=== PATIENT | female | born 1960 | race Caucasian/White ===

== ENCOUNTER 2020-01-22 10:56 | Emergency (ER) | payer OTHER, SELFPAY ==
[2020-01-22 11:07] VITALS: BP 133/73; PULSE 89; RESP 20; TEMP 39.1; O2SAT 97
--- NOTE | 2020-01-22 11:37 | ED.FEVER ---
HPI - Fever General Chief Complaint: Fever Stated Complaint: fever/sore in mouth Time Seen by Provider: 01/22/20 11:24 Source: patient and RN notes reviewed Mode of arrival: ambulatory Limitations: no limitations History of Present Illness HPI Narrative: Patient presents today complaining of fever up to 101, chills, body aches since yesterday. She has also had a sore on the roof of her mouth x6 days that seems to be improving. Denies cough, congestion, rhinorrhea, sore throat, shortness of breath. Denies loss of taste or smell. No known COVID-19 exposure. She has been taking Tylenol and using salt water rinses in her mouth with some relief. MD elicited complaint: fever Related Data Home Medications Medication Instructions Recorded Confirmed levothyroxine 150 mcg PO DAILY 01/22/20 01/22/20 Allergies Allergy/AdvReac Type Severity Reaction Status Date / Time codeine Allergy Unknown Nausea Verified 01/22/20 11:10 Review of Systems Review of Systems: Narrative: CONSTITUTIONAL: Denies sweats.+ Fever, chills, body aches EYES: Denies visual changes, redness, or discharge. ENT: Denies rhinorrhea, congestion, sore throat, or otalgia. CARDIOVASCULAR: Denies chest pain, palpitations, or edema. RESPIRATORY: Denies cough or dyspnea. GASTROINTESTINAL: Denies abdominal pain, nausea, vomiting, or diarrhea. GENITOURINARY: Denies dysuria or hematuria. SKIN: Denies rash, itching, or wounds. MUSCULOSKELETAL: Denies back pain, joint pain, or myalgia. NEUROLOGIC: Denies headache, numbness, tingling, or weakness. PSYCH: Denies depression or anxiety. [facility] Family History Family History (Updated 08/15/17 @ 08:50 by DOCTOR UNKNOWN) Mother Family history of malignant neoplasm of stomach Grandparent Family history of lung cancer Family history of coronary artery disease Diabetes mellitus Other Family history of arthritis Family history of cardiovascular disease Family history of congestive heart failure Family history of lung disease Social History Social History Smoking status: Never smoker Alcohol intake: current Comments At time of signature, I have reviewed and agree with nursing past medical, surgical, social and family history unless otherwise noted. Please see nursing chart for further information. There is no relevant family history pertinent to the presenting complaint Exam Narrative: Exam Narrative: GENERAL: Well-appearing, well-nourished, and in no acute distress. HEAD: Normocephalic, atraumatic. EYES: EOMI. No redness or drainage. Conjunctivae normal. ENT: Mucous membranes pink and moist. 3 mm ulceration to the left hard palate that seems to be healing. No active erythema or edema noted. No drainage. Nares clear. No rhinorrhea. TMs normal bilaterally. Throat normal. Uvula midline. NECK: Normal AROM. Supple. No lymphadenopathy. CHEST: No respiratory distress. Clear to auscultation. HEART: Regular rate and rhythm. No murmur appreciated. Normal peripheral pulses. EXTREMITIES: Normal range of motion. No edema. SKIN: Warm, dry, no rash. Capillary refill normal. Normal skin turgor. NEURO: No focal deficits. Alert and oriented x3. Gait steady. PSYCH: Normal affect. No signs of depression or anxiety. Course Vital Signs Vital signs: Vital Signs Temperature 102.3 F H 01/22/20 11:07 Pulse Rate 89 01/22/20 11:07 Respiratory Rate 01/22/20 11:07 Blood Pressure 133/73 01/22/20 11:07 Pulse Oximetry 97 01/22/20 11:07 Temperature 102.3 F H 01/22/20 11:07 Pulse Rate 89 01/22/20 11:07 Respiratory Rate 20 01/22/20 11:07 Blood Pressure 133/73 01/22/20 11:07 Pulse Oximetry 97 01/22/20 11:07 Reviewed. Pt has been instructed to follow up with her PCP regarding her elevated blood pressure today. MDM - Fever MDM Narrative Medical decision making narrative: Order sent for COVID-19 testing tomorrow at 0820 at [place]. due to recent exposure and symptoms, laya
== END 2020-01-22 12:01 | disposition home or self-care (01) ==
PROVIDERS: Emergency Provider Nurse Practitioner; PCP Family Medicine
DX: U07.1 COVID-19 (principal); E89.0 Postprocedural hypothyroidism
CPT/HCPCS: 99211; G0463

== ENCOUNTER → 2020-03-03 10:26 | Outpatient (CLI) | payer OTHER, SELFPAY ==
--- NOTE | ~2020-03-03 | XR_ITS ---
XR hip LT min 2V 03/03/2020 10:47 INDICATION: Left hip pain PROCEDURE: 2 views left hip COMPARISON: No prior studies for comparison. FINDINGS: Fracture, dislocation or subluxation is not identified. The soft tissues appear within norm al limits. No foreign bodies are identified. IMPRESSION: 1: NO ACUTE BONE OR JOINT ABNORMALITY IDENTIFIED. Reviewed, dictated and finalized at location A.
== END ==
PROVIDERS: PCP Family Medicine; Visit Provider Family Medicine
DX: M25.552 Pain in left hip (principal)
CPT/HCPCS: 73502

== ENCOUNTER → 2020-05-29 15:36 | Outpatient (CLI) | payer OTHER, SELFPAY ==
--- NOTE | ~2020-05-29 | MM_ITS ---
EXAMINATION: MM screening [facility] BI w john HISTORY: Screening mammogram TECHNIQUE: Craniocaudal and mediolateral oblique 3-D tomosynthesis images were obtained and synthetic 2-D images were generated. CAD analysis was submitted and interpreted. COMPARISON: 10/08/2018, 09/15/2017 BREAST PARENCHYMAL COMPOSITION: The breasts are almost entirely fatty. FINDINGS: Stable intramammary lymph nodes are noted in the left breast. There is no evidence of suspi cious mass, calcification, or architectural distortion to suggest malignancy in either breast. There has been no suspicious interval change. IMPRESSION: 1. No mammographic evidence of malignancy. 2. Recommend routine screening mammography in one year. BI-RADS Category 2: Benign finding(s). Reviewed, dictated and finalized at location A. P HERDER
== END ==
PROVIDERS: PCP Family Medicine; Visit Provider Obstetrics & Gynecology
DX: Z12.31 Encounter for screening mammogram for malignant neoplasm of breast (principal)
CPT/HCPCS: 77063; 77067

== ENCOUNTER → 2020-09-24 12:44 | Outpatient (CLI) | payer OTHER, SELFPAY ==
--- NOTE | ~2020-09-24 | CT_ITS ---
EXAMINATION: CT abdomen pelvis wo con DATE: 09/24/2020 13:07 INDICATION: Ventral hernia without obstruction or gangrene TECHNIQUE: Computed tomography (CT) of the abdomen and pelvis was performed without intravenous contr ast. The dose-length product (DLP) was 931.15 mGy-cm. Automated exposure control and iterative recons truction technique were employed. COMPARISON: 10/10/2016 FINDINGS: Minimal dependent atelectasis is present in the lung bases. The heart size is normal. Stabl e nodules of the visualized lower lobes measure up to 5 mm and are consistent with old granulomatous disease. Although limited by the absence of intravenous contrast, there are hemangiomas are again not ed which measure up to 2.7 cm in liver segment . The spleen, pancreas, and adrenal glands are idania l. Stones are present in the nondistended gallbladder. There is a 2 mm nonobstructing stone of the ri ght kidney lower pole. The left kidney is unremarkable. There is calcified atherosclerosis of the aor ta and many of the other arteries. No pathologically enlarged abdominal or pelvic lymph nodes are kary ntified. Colonic diverticulosis is present without evidence of diverticulitis. There is an umbilical hernia containing fat. There is mild lumbar spondylosis. IMPRESSION: 1. Fat-containing umbilical hernia. 2. Cholelithiasis without evidence of cholecystitis. Reviewed, dictated and finalized at location B.
== END ==
PROVIDERS: PCP Family Medicine; Visit Provider Surgery
DX: K43.9 Ventral hernia without obstruction or gangrene (principal); K40.90 Unilateral inguinal hernia, without obstruction or gangrene, not specified as recurrent; K80.20 Calculus of gallbladder without cholecystitis without obstruction
CPT/HCPCS: 74176

== ENCOUNTER → 2020-11-21 00:09 | Outpatient (CLI) | payer OTHER, SELFPAY ==
[2020-11-21 17:56] LABS: SARS-CoV-2 RNA PCR Negative
== END ==
PROVIDERS: PCP Family Medicine; Visit Provider Surgery
DX: Z01.812 Encounter for preprocedural laboratory examination (principal); Z20.822 Contact with and (suspected) exposure to COVID-19
CPT/HCPCS: C9803; U0003; U0005

== ENCOUNTER 2020-11-25 00:44 | Day surgery (SDC) | payer OTHER, SELFPAY ==
[2020-11-12 15:27] VITALS: BMI 29.2
--- NOTE | 2020-11-24 07:56 | PM.SD2 ---
Same Day Admit/Disch: HPI History of Present Illness Chief complaint: ventral hernia Narrative: Aleja Azul is a 60 year old female Who presented to the office with a bulge above the umbilicus which is tender. It rubs on her waistline of her clothes. It is also occasionally painful. On exam she was noted to have a bulge about 5 cm cephalad to the umbilicus. She had a CT scan of the abdomen and pelvis which showed an umbilical hernia. She has a history of an abdominal plasty done 11 years ago in [place]. She is taken to surgery now for umbilical hernia repair with mesh. She has a medical history of hypothyroidism, obstructive sleep apnea, and Crohn's disease. She is on no medication for Crohn's disease. [facility] Past Medical History Medical History Crohn's disease Hypothyroidism Surgical History Surgical History H/O abdominoplasty History of delivery History of hysterectomy History of meniscectomy of left knee History of thyroidectomy noncancerous Family History Family History Mother Family history of malignant neoplasm of stomach Grandparent Family history of lung cancer Family history of coronary artery disease Diabetes mellitus Other Family history of arthritis Family history of cardiovascular disease Family history of congestive heart failure Family history of lung disease Social History Social History Smoking packs per day: 0.5 Smoking cigarettes per day: 10.0 Years smoked: 5 Smoking pack-years: 2.50 Smoking status: Former smoker Tobacco type: cigarettes Smoking end date: 06/12/92 Alcohol intake: current Substance use: never Substance use type: does not use Last use: 1992 Living arrangements: with family Gender identity (if verbalized by the patient): Female Sexual Orientation (if Verbalized by the Patient): Straight or Heterosexual Spiritual care concerns: No Same Day Admit/Disch: Med Pre-admit Medications Home Medications Medication Instructions Recorded Confirmed Type levothyroxine 150 mcg tablet 150 mcg PO DAILY #90 tablet 08/24/20 11/25/20 Rx ketorolac 10 mg PO Q6H 4 Days #16 tablet 11/25/20 Rx oxycodone-acetaminophen 0.5 - 1 tablet PO Q6H PRN #7 tablet 11/25/20 Rx Exam Const: General: comfortable, no acute distress, alert and awake HENMT: Head: normocephalic and atraumatic Mouth: Yes Normal oral and palatal mucosa present Eyes: Conjunctivae: conjunctivae normal Pupils: Equal, round and reactive pupils present EOM: EOMs intact bilaterally Neck: Neck: normal visual inspection, no lymphadenopathy and nontender Resp: Effort & Inspection: normal respiratory effort Auscultation: clear to auscultation bilaterally Cardio: Rate: regular rate Rhythm: regular rhythm Heart sounds: no gallops, no murmurs and no rubs GI: Inspection: non-distended, scar ( Abdominal plasty) and visible herniation ( bulge, 5 cm above umbilicus) GI Palp: Yes Soft to palpation, No Tenderness to palpation present (GI), No Hepatomegaly present, No Splenomegaly present and Yes Hernia present ( small umbilical hernia minimal tenderness) Skin: Lesions: no lesions Rashes: no rashes Neuro: General: no focal motor deficits and CN's II-XI intact bilaterally Cranial nerves: Yes Equal, round and reactive pupils present, Yes Bilaterally intact EOM present, Yes facial symmetry and Yes Midline tongue present Speech: normal speech Motor exam (neuro): 5/5 motor strength present throughout and Motor abnormalities not present Extrem: General: no clubbing, cyanosis or edema and edema Psych: Affect: normal affect Thought process: Normal thought process present Insight: Good insight present (Psych) DS: Summary Time Spent with Patient Time attestation: Total pardeep
--- NOTE | 2020-11-24 13:17 | WPDANESEPPF ---
Anes - Initial Pre Proc Eval Procedure: Operation Date: 11/25/20 07:30 Proposed Procedures p Open Periumbilical Ventral Hernia Repair With Mesh - Henry Martell MD Date/Time: 11/24/20 13:17 Surgeon: Henry Martell MD Pre Op Diagnosis: ventral hernia Patient Data Age: 60 Gender: F Height: 1.73 m Weight: 87.3 kg Allergies Allergy/AdvReac Type Severity Reaction Status Date / Time codeine AdvReac Mild Nausea Verified 11/25/20 06:19 Home Medications Medication Instructions Recorded Confirmed Type levothyroxine 150 mcg tablet 150 mcg PO DAILY #90 tablet 08/24/20 11/25/20 Rx Patient hx anesthesia problems: none Family hx anesthesia problems: none PMFSH Past Medical History Medical History Crohn's disease Hypothyroidism Surgical History Surgical History H/O abdominoplasty History of delivery History of hysterectomy History of meniscectomy of left knee History of thyroidectomy noncancerous Family History Family History Mother Family history of malignant neoplasm of stomach Grandparent Family history of lung cancer Family history of coronary artery disease Diabetes mellitus Other Family history of arthritis Family history of cardiovascular disease Family history of congestive heart failure Family history of lung disease Social History Social History Smoking packs per day: 0.5 Smoking cigarettes per day: 10.0 Years smoked: 5 Smoking pack-years: 2.50 Smoking status: Former smoker Tobacco type: cigarettes Smoking end date: 06/12/92 Alcohol intake: current Substance use: never Substance use type: does not use Last use: 1992 Living arrangements: with family Gender identity (if verbalized by the patient): Female Sexual Orientation (if Verbalized by the Patient): Straight or Heterosexual Spiritual care concerns: No Anes - Eval Final PreProcedure Day of Procedure 11/24/20 13:17 Patient weight: overweight Heart: regular rate and rhythm Lungs: clear to auscultation and normal air movement Airway: Mallampati scale class II Neurological: alert and oriented Last oral intake: >/= 8 hours ASA classification: II Emergent: no Anesthetic plan: proceed Anesthesia type and monitoring: general GIVS and LMA Informed Consent: The patient's anesthetic plan and its attendant risks and benefits were discussed with the patient/family/POA. Questions were solicited and answers provided to the satisfaction of the patient/family/POA.
[2020-11-25 06:12] VITALS: BP 119/78; PULSE 71; RESP 16; TEMP 36.2; O2SAT 97
[2020-11-25] MEDS: ACETAMINOPHEN 500 MG TABLET 1000 MG PO (06:23)
[2020-11-25] MEDS: LACTATED RINGERS 1,000 ML 30 ML IV CONT ×2 (06:38→08:27)
[2020-11-25] MEDS: KETOROLAC 15 MG/ML VIAL (*BKC) IV PUSH (06:39)
--- NOTE | 2020-11-25 06:51 | WPDHPUPDATE1 ---
History and Physical Update Update Date/Time: 11/25/20 06:51 History and Physical has been reviewed, including an updated exam of the patient. There are NO changes in the patient's condition. Risks, benefits, and alternatives have been discussed and questions answered. Patient agrees to proceed with procedure.
[2020-11-25] MEDS: ceFAZolin 2 GM/D5W 50 ML 2 GM/50 ML BAG IVPB (07:20)
[2020-11-25] MEDS: BUPIVACAINE HCL 0.5% PF 30 ML VIAL INFILTRATE (07:55)
[2020-11-25 08:27] VITALS: BP 101/61; PULSE 63; RESP 16; O2SAT 95
--- NOTE | 2020-11-25 08:42 | P.OP_ITS ---
Procedure Note - Detailed Date of Procedure 11/25/20 Pre-op Diagnosis ventral hernia Post-op Diagnosis other (Umbilical hernia) Procedure Performed Umbilical hernia repair Surgeon Henry Martell MD [employer]ING MANAGER Anesthesia MAC (G IV S) and local (0.5% Marcaine with Exparel) Indications Patient had abdominal plasty 11 years ago. She has a bulge in the abdomen about 5 cm cephalad to the umbilicus. It has been symptomatic. CT suggests this is an umbilical hernia. She is taken to surgery now for ventral hernia repair. Findings Showed an umbilical hernia. There was no separate ventral hernia defect. It was very small hernia and no mesh was required. Description of Procedure Patient was checked in the preoperative holding area. She was taken to surgery and anesthesia was introduced. The proposed incision was marked on the skin. This was a midline incision just above the umbilicus. Local was infiltrated into the skin and the deeper subcutaneous tissue. Incision was made dissect down through the subcutaneous. The incision was made over the palpable bulge. As we dissected through the subcutaneous it was evident that a lot of the bulging tissue was some indurated subcutaneous fat. I dissected down to the fascia and down to the umbilical stalk. The hernia was found associated with the umbilicus. I expose the midline fascia above the umbilicus for at least 7 cm. No additional hernia defects were found. I then divided the hernia sac at its neck. The herniated contents were excised and discarded. Hernia sac was dissected off the umbilical skin. The hernia defect was quite small being only about 8 mm in width and 3 mm in length. I closed it with a [id number] mattress suture of 0 Ethibond. I then tacked the umbilical skin to the fascia with 3 0 Vicryl suture. The subcutaneous was closed with interrupted 3 0 Vicryl suture. Subcuticular interrupted 4 O Vicryl skin stitches were placed. The skin was finally closed with a running 4 0 Monocryl skin suture. The wound was dressed with Exofin surgical adhesive. The patient was awakened and taken to recovery in good condition. Sponge and needle counts were correct x2. Estimated Blood Loss 5 Drains No Packing No Pathology none sent Complications None Condition stable Disposition same day
[2020-11-25 08:57] VITALS: BP 105/64; PULSE 62; RESP 16; O2SAT 98
[2020-11-25 09:20] VITALS: BP 106/61; PULSE 60; RESP 16
== END 2020-11-25 09:30 | disposition home or self-care (01) ==
PROVIDERS: PCP Family Medicine; Visit Provider Surgery
PROC: 0WQF0ZZ Repair Abdominal Wall, Open Approach (ICD-10-PCS; CPT 49585; principal; 2020-11-25 07:30)
DX: K42.9 Umbilical hernia without obstruction or gangrene (principal); E03.9 Hypothyroidism, unspecified; K50.90 Crohn's disease, unspecified, without complications; Z87.891 Personal history of nicotine dependence
CPT/HCPCS: 49585; A9270; C9290; C9803; J0690; J1100; J1885; J2250; J2405; J2704; J3010; J7120; U0003; U0005

== ENCOUNTER → 2021-03-08 09:40 | Outpatient (CLI) | payer OTHER, SELFPAY ==
--- NOTE | ~2021-03-08 | XR_ITS ---
EXAMINATION: XR abdomen/kub 1V EXAM DATE: 03/08/2021 10:00 INDICATION: R10.9 - Unspecified abdominal pain . TECHNIQUE: Frontal projection of the upper abdomen, frontal projection lower abdomen/pelvis for inter pretation. Correlation is made to CT abdomen from September. FINDINGS: There is expected amount of colonic stool and gas. No small bowel dilation, nonobstructiv e bowel gas pattern. There are no suspicious calcifications identified. There is no organomegaly suspected. Moderate lower lumbar spondylosis. Lung bases are unremarkable. IMPRESSION: Unremarkable abdomen x-ray exam. Reviewed, dictated and finalized at location A.
== END ==
PROVIDERS: PCP Family Medicine; Visit Provider Family Medicine
DX: R10.9 Unspecified abdominal pain (principal)
CPT/HCPCS: 74018

== ENCOUNTER 2021-03-15 15:22 | Outpatient (CLI) | payer OTHER, SELFPAY ==
--- NOTE | ~2021-03-15 | CT_ITS ---
EXAMINATION: CT abdomen pelvis wo con DATE: 03/15/2021 15:51 INDICATION: Right flank pain. Unspecified abdominal pain. TECHNIQUE: Computed tomography (CT) of the abdomen and pelvis was performed without intravenous contr ast. Automated exposure control and iterative reconstruction technique were employed. The dose-length product was 751.67 mGy-cm. COMPARISON: CT abdomen and pelvis 09/24/2020, 10/10/2016 FINDINGS: The visualized portions of the lung bases demonstrate mild atelectasis. Again seen is a 5 m m nodule in right lower lobe, likely benign. Again seen is a 6 mm nodule in left lower lobe, likely b enign. No pleural effusion. The heart size is normal. No pericardial effusion. Again seen is a 2.5 cm mass in right hepatic lobe, likely a hemangioma. There are gallstones in the gallbladder, which is c ontracted. The spleen, pancreas, adrenal glands, and left kidney are normal. There is a 2 mm stone in right kidney. There is diverticulosis of the colon without evidence of diverticulitis. There are no dilated loops of bowel. The appendix is normal. There are no pathologically enlarged lymph nodes. The re is no free intraperitoneal fluid. There is moderate lumbar spondylosis. IMPRESSION: 1. Small nonobstructing right kidney stone. 2. Cholelithiasis. No evidence of acute cholecystitis. Reviewed, dictated and finalized at location A.
== END 2021-03-15 15:23 | disposition home or self-care (01) ==
LOC: ANHIMG 15:31
PROVIDERS: PCP Family Medicine; Visit Provider Family Medicine
DX: R10.9 Unspecified abdominal pain (principal); R31.9 Hematuria, unspecified; N20.0 Calculus of kidney; K80.20 Calculus of gallbladder without cholecystitis without obstruction
CPT/HCPCS: 74176

== ENCOUNTER 2021-03-23 13:43 | Outpatient (CLI) | payer OTHER, SELFPAY ==
--- NOTE | ~2021-03-23 | CT_ITS ---
EXAMINATION:CT lung screening DATE: 03/23/2021 14:34 INDICATION: Lung nodule. TECHNIQUE: Computed tomography (CT) of the chest was performed without intravenous contrast. Automate d exposure control and iterative reconstruction technique were employed. The dose-length product (DLP ) was 125.06 mGy-cm. COMPARISON: CT abdomen and pelvis 03/15/2021, 10/10/2016 FINDINGS: There is mild scarring at the lung apices. There is a 5 mm nodule at right major fissure. T here is a 5 mm nodule in right middle lobe. There is a 5 mm nodule in left lower lobe. There is a 3 m m nodule at left major fissure. There is a 4 mm nodule in left lower lobe. There are nodules in the i nferior lungs included on the CT from 10/10/16 are stable. No pleural effusion. The heart size is idania l. No pericardial effusion. There are gallstones in the gallbladder, which is normal in size. There i s 11 mm cyst in the liver. There is mild thoracic spondylosis. IMPRESSION: 1. Lung nodules measuring up to 5 mm, likely benign. Reviewed, dictated and finalized at location A.
== END 2021-03-23 13:44 | disposition home or self-care (01) ==
LOC: ANHIMG 13:54
PROVIDERS: PCP Family Medicine; Visit Provider Physician Assistant
DX: Z12.2 Encounter for screening for malignant neoplasm of respiratory organs (principal); Z87.891 Personal history of nicotine dependence
CPT/HCPCS: 71271

== ENCOUNTER → 2021-09-22 14:54 | Outpatient (CLI) | payer OTHER, SELFPAY ==
--- NOTE | ~2021-09-22 | MM_ITS ---
EXAMINATION: MM screening [facility] BI w john HISTORY: Screening TECHNIQUE: Craniocaudal and mediolateral oblique 3-D tomosynthesis images were obtained and synthetic 2-D images were generated. CAD analysis was submitted and interpreted. COMPARISON: Comparison to multiple prior studies sequentially, with oldest reviewed study dated 11/2017. BREAST PARENCHYMAL COMPOSITION: Breast composed of scattered areas of fibroglandular density FINDINGS: There is no evidence of suspicious mass, calcification, or architectural distortion to sugg est malignancy in either breast. There has been no suspicious interval change. IMPRESSION: 1. No mammographic evidence of malignancy. 2. Recommend routine screening mammography in one year. BI-RADS Category 1: Negative Reviewed, dictated and finalized at location A.
== END ==
PROVIDERS: PCP Family Medicine; Visit Provider Obstetrics & Gynecology
DX: Z12.31 Encounter for screening mammogram for malignant neoplasm of breast (principal)
CPT/HCPCS: 77063; 77067

== ENCOUNTER 2022-08-08 09:40 | Outpatient (CLI) | payer OTHER, SELFPAY ==
--- NOTE | 2022-08-08 | ECG_ITS ---
Measurements Intervals [place] Rate: 63 P: 36 MO: 125 QRS: 3 QRSD: 96 T: 30 QT: 430 QTc: 441 Interpretive Statements SINUS RHYTHM NORMAL ECG NO PREVIOUS ECG AVAILABLE FOR COMPARISON Electronically Signed On 08-08-2022 14:36:36 [employer]BER by Ronald Magdaleno M.D.
--- NOTE | ~2022-08-08 | XR_ITS ---
EXAMINATION: XR chest 2V 08/08/2022 10:43 INDICATION: Preop neck surgery. PROCEDURE: 2 views of the chest COMPARISON: 06/16/2016 FINDINGS: The lungs are clear. The cardiomediastinal silhouette is within normal limits. There are no pleural effusions. There is no pneumothorax suspected. IMPRESSION: 1: NO ACUTE CARDIOPULMONARY DISEASE. Reviewed, dictated and finalized at location B. [employer] REPRESENTATIVE
[2022-08-08 10:38] LABS: Basophils Absolute Auto 0.1 K/mm3 (0.0-0.1); Basophils Percent Auto 0.6 % (0.2-1.2); Eosinophils Absolute Auto 0.1 K/mm3 (0-0.3); Hemoglobin 12.9 g/dL (12.0-15.0); Immature Granulocyte Absolute 0.02 K/mm3 (0.00-0.031); Immature Granulocyte Percent A 0.2 % (0-0.5); Lymphocytes Absolute Auto 2.38 K/mm3 (0.9-3.2); Lymphocytes Percent Auto 27.3 % (18.3-44.2); Mean Corpuscular HGB Conc 32.3 g/dl (32-36); Mean Corpuscular Volume 89.9 fl (80-100); Mean Platelet Volume 10.9 fl (7.4-10.4); Monocytes Absolute Auto 0.4 K/mm3 (0.1-0.6); Neutrophils Absolute Auto 5.8 K/mm3 (1.3-6.7); Neutrophils Percent Auto 66.9 % (45.5-73.1); Platelet Count Result 290 k/mm3 (150-375); Red Blood Count 4.45 M/mm3 (4.2-5.4); Red Cell Distribution Width 13.2 % (11.5-14.5); White Blood Count 8.7 K/mm3 (4.5-10.0)
[2022-08-08 10:49] LABS: Prothrombin Time 12.9 Seconds (11.1-14.7)
[2022-08-08 10:50] LABS: Partial Thromboplastin Time 30.8 SECONDS (22.3-36.8)
[2022-08-08 10:53] LABS: Alanine Aminotransferase 17 U/L (6-35); Albumin Level 4.3 g/dL (3.5-5.1); Alkaline Phosphatase 64 U/L (38-126); Anion Gap 5 mmol/L (8-16); Aspartate Amino Transferase 18 U/L (14-36); Bilirubin,Total 0.7 mg/dL (0.2-1.3); Blood Urea Nitrogen 14 mg/dL (7-17); Calcium 8.6 mg/dL (8.4-10.2); Carbon Dioxide 31 mmol/L (22-30); Chloride 101 mmol/L (98-107); Estimated Glomerular Filt Rate > 60; Glucose 76 mg/dL (65-110); Potassium 3.6 mmol/L (3.4-5.0); Sodium 137 mmol/L (137-145)
== END 2022-08-08 09:41 | disposition home or self-care (01) ==
LOC: ANHLAB 09:45
PROVIDERS: PCP Family Medicine
DX: Z01.818 Encounter for other preprocedural examination (principal)
CPT/HCPCS: 36415; 71046; 80053; 85025; 85610; 85730; 93005

== ENCOUNTER 2023-01-16 13:41 | Outpatient (CLI) | payer OTHER, SELFPAY ==
--- NOTE | 2023-01-16 | ECG_ITS ---
Measurements Intervals [place] Rate: 66 P: 47 TN: 136 QRS: -15 QRSD: 95 T: 1 QT: 427 QTc: 447 Interpretive Statements SINUS RHYTHM LOW QRS VOLTAGE IN PRECORDIAL LEADS [QRS DEFLECTION < 1.0 mV IN CHEST LEADS] BORDERLINE ECG COMPARED TO ECG 08/08/2022 10:19:47 NO SIGNIFICANT CHANGES Electronically Signed On 01-17-2023 13:06:35 CDT by Byron Patrick M.D.
--- NOTE | ~2023-01-16 | XR_ITS ---
EXAMINATION: XR chest 2V Exam Date/Time: 01/16/2023 14:55 CDT HISTORY: PREOP TESTING Comparison: 08/08/2022. RESULT: Lines, tubes, and devices: Incompletely visualized ACDF hardware. Lungs and pleura: Clear. Cardiomediastinal silhouette: Stable. Other: No acute osseous or upper abdominal finding. IMPRESSION: No acute cardiopulmonary process. Reviewed, dictated and finalized at location K.
[2023-01-16 14:15] LABS: Basophils Absolute Auto 0.1 K/mm3 (0.0-0.1); Basophils Percent Auto 0.6 % (0.2-1.2); Eosinophils Absolute Auto 0.2 K/mm3 (0-0.3); Eosinophils Percent Auto 1.9 % (0-4.4); Hematocrit 37.5 % (37.0-47.0); Hemoglobin 11.8 g/dL (12.0-15.0); Immature Granulocyte Absolute 0.04 K/mm3 (0.00-0.031); Immature Granulocyte Percent A 0.5 % (0-0.5); Lymphocytes Absolute Auto 1.89 K/mm3 (0.9-3.2); Lymphocytes Percent Auto 21.3 % (18.3-44.2); Mean Corpuscular HGB Conc 31.5 g/dl (32-36); Mean Corpuscular Hemoglobin 27.6 pg (26-34); Mean Corpuscular Volume 87.8 fl (80-100); Mean Platelet Volume 10.5 fl (7.4-10.4); Monocytes Absolute Auto 0.4 K/mm3 (0.1-0.6); Monocytes Percent Auto 4.5 % (2.6-8.5); Neutrophils Absolute Auto 6.3 K/mm3 (1.3-6.7); Neutrophils Percent Auto 71.2 % (45.5-73.1); Platelet Count Result 340 k/mm3 (150-375); Red Blood Count 4.27 M/mm3 (4.2-5.4); Red Cell Distribution Width 13.9 % (11.5-14.5); White Blood Count 8.9 K/mm3 (4.5-10.0)
[2023-01-16 14:25] LABS: INR 0.9
[2023-01-16 14:26] LABS: Partial Thromboplastin Time 30.4 SECONDS (22.3-36.8)
[2023-01-16 14:37] LABS: Alanine Aminotransferase 18 U/L (6-35); Alkaline Phosphatase 76 U/L (38-126); Anion Gap 3 mmol/L (8-16); Aspartate Amino Transferase 20 U/L (14-36); Bilirubin,Total 0.5 mg/dL (0.2-1.3); Blood Urea Nitrogen 21 mg/dL (7-17); Calcium 8.5 mg/dL (8.4-10.2); Carbon Dioxide 30 mmol/L (22-30); Chloride 104 mmol/L (98-107); Estimated Glomerular Filt Rate > 60; Glucose 108 mg/dL (65-110); Potassium 3.9 mmol/L (3.4-5.0); Sodium 137 mmol/L (137-145)
== END 2023-01-16 13:42 | disposition home or self-care (01) ==
PROVIDERS: PCP Family Medicine
DX: Z01.818 Encounter for other preprocedural examination (principal); R93.41 Abnormal radiologic findings on diagnostic imaging of renal pelvis, ureter, or bladder
CPT/HCPCS: 36415; 71046; 80053; 85025; 85610; 85730; 93005

== ENCOUNTER 2023-04-06 14:08 | Outpatient (CLI) | payer OTHER, SELFPAY ==
--- NOTE | ~2023-04-06 | MM_ITS ---
EXAMINATION: MM screening [facility] BI w john HISTORY: Screening mammogram TECHNIQUE: Craniocaudal and mediolateral oblique 3-D tomosynthesis images were obtained and synthetic 2-D images were generated. CAD analysis was submitted and interpreted. COMPARISON: September 22, 2021, May 29, 2020, October 08, 2018 bilateral screening mammogram examinati ons BREAST PARENCHYMAL COMPOSITION: There are scattered areas of fibroglandular density. FINDINGS: Stable benign-appearing left intramammary lymph nodes. There is no evidence of suspicious m ass, calcification, or architectural distortion to suggest malignancy in either breast. There has bee n no suspicious interval change. IMPRESSION: 1. No mammographic evidence of malignancy. 2. Recommend routine screening mammography in one year. BI-RADS Category 2: Benign finding(s). Reviewed, dictated and finalized at location A.
== END 2023-04-06 14:09 | disposition home or self-care (01) ==
LOC: CHSIMG 14:08
PROVIDERS: PCP Family Medicine; Visit Provider Obstetrics & Gynecology
DX: Z12.31 Encounter for screening mammogram for malignant neoplasm of breast (principal)
CPT/HCPCS: 77063; 77067

== ENCOUNTER 2024-06-24 07:58 | Outpatient (CLI) | payer MEDICARE, SELFPAY ==
--- NOTE | ~2024-06-24 | MM_ITS ---
EXAMINATION: MM screening [facility] BI w john HISTORY: Screening mammogram TECHNIQUE: Craniocaudal and mediolateral oblique 3-D tomosynthesis images were obtained and synthetic 2-D images were generated. CAD analysis was submitted and interpreted. COMPARISON: 04/06/2023, 09/22/2021, 05/29/2020 BREAST PARENCHYMAL COMPOSITION:Not Dense. There are scattered areas of fibroglandular density. FINDINGS: Stable left breast intramammary lymph nodes. No suspicious mass, calcification, or architec tural distortion are identified in either breast to suggest malignancy. There has been no suspicious interval change. IMPRESSION: No mammographic evidence of malignancy. Recommend routine screening mammography in one year. BI-RADS Category 2: Benign finding(s). Reviewed, dictated and finalized at [facility]. NESS PROCESS REPRESENTATIVE
== END 2024-06-24 07:59 | disposition home or self-care (01) ==
LOC: CHSIMG 08:00
PROVIDERS: PCP Family Medicine; Visit Provider Obstetrics & Gynecology
DX: Z12.31 Encounter for screening mammogram for malignant neoplasm of breast (principal)
CPT/HCPCS: 77063; 77067

== ENCOUNTER 2024-10-10 13:08 | Outpatient (CLI) | payer MEDICARE, SELFPAY ==
--- NOTE | ~2024-10-10 | DEXA_ITS ---
Bone Density Report Name: ANTONETTE YANES Age: 64 Sex: Female Ethnicity: White Date of : 1960 Indication: postmenopausal; screening for osteoporosis; prior fracture; hysterectomy; Referring Provider: Josh Camacho Study: Bone densitometry was performed. Exam Date: October 10, 2024 Accession number: [id number] Bone Density: Region BMD T-score Z-score Classification AP Spine(L1, L2, L3) 0.979 -0.4 1.4 Normal Femoral Neck (Left) 0.618 -2.1 -0.5 Osteopenia Total Hip (Left) 0.813 -1.1 0.2 Osteopenia Femoral Neck (Right) 0.636 -1.9 -0.4 Osteopenia Total Hip (Right) 0.800 -1.2 0.1 Osteopenia Femoral Neck Mean 0.627 -2.0 -0.4 Osteopenia Total Hip Mean 0.806 -1.1 0.2 Osteopenia World Health Organization criteria for BMD impression classify patients as: Normal (T-score at or above -1.0), Osteopenia (T-score between -1.0 and -2.5), or Osteoporosis (T-score at or below -2.5). 10-year Fracture Risk: FRAX not reported because: Prior hip or vertebral fracture Clinical Information Provided by Patient: Have had a previous hip or vertebral fracture Has had a low trauma fracture Has used the following medications: Vitamin D, multi Has the following medical conditions: Hysterectomy Patient maximum height was 68 Menopause Age: 48 Drinks caffeinated beverages Onset of menses at age 8 Number of children 1 Impression: The patient has low bone mass, based on the Left Femoral Neck T-score. The patient has risk factors, including: previous fracture. Discussion: INCREASED RISK OF FRACTURE DUE TO HISTORY OF FRACTURE. The patient's previous fracture puts the patient at high risk of a future fracture. In untreated patients, the risk of osteoporotic fracture increases approximately two-fold for each 1.0 SD decrease in T-score. Low bone density is not the only risk factor for fracture; also consider factors such as patient's age, frailty or poor health, risk of falling, risk of injury, previous osteoporotic fracture, family history of osteoporosis, cigarette smoking, low body weight, etc. Not everyone with a low trauma fracture has osteoporosis; osteomalacia and other metabolic bone disorders should also be considered. Patients who have osteoporosis should be evaluated for specific diseases and conditions (secondary causes) that may cause or contribute to bone loss and fracture risk. National Osteoporosis Foundation (NOF) recommends pharmacologic intervention for patients with a prior hip or vertebral fracture regardless of BMD T-score. The patient should follow a healthful lifestyle (good nutrition with adequate calcium and vitamin D, and appropriate weight-bearing exercise). Follow-Up: Consider a repeat BMD and Vertebral Fracture Assessment (VFA) exam in 2 years or sooner if medically necessary, to reassess this patient's status. Reported by: BRONWYN on 10/10/2024 1:39:00 PM. Reviewed, dictated and finalized at location A.
--- OUTSIDE RECORDS SUMMARY | 2024-10-10 14:18 | XMS_ITS | Data Portability ---
Author Organization [facility] TIFFEvelina Berg Address [address] [place] [address] Care Team Providers Care Chute Tender Name Role Phone KIKI AGUIRRE Primary Care Provider Assessment Encounter Date Assessment Date Assessment LastModified by Organization Details LastModified Time 02/01/2019 02/01/2019 had normal mammogram at [facility] in 2019. HAD NORMAL PAP WITH dR. HUMPHRIES. HAD COLONOSCOPY IN 2014; DIAGNOSED WITH CROHN'S--ASYMP TOMATIC. Not available 02/01/2019 15:42:49 Plan of Treatment Reminders Order Date Submit Date Provider Last Modified By Organization Details Last Modified Time Details Appointments None recorded. Lab CMP, serum or plasma 2017 018 RAJINDER Leyva, [address], [place], [address], 8 06:10:29 lipid panel, serum 2017 018 RAJINDER Leyva, [address], [place], [address], 8 06:10:29 vitamin D, 25-hydroxy , total, serum 2017 018 RAJINDER Leyva, [address], [place], [address], 8 06:10:31 vitamin B12 + folate, serum or blood 2017 018 RAJINDER Leyva, [address], [place], [address], 8 06:10:30 TSH, ultra-sens itive, serum 2017 [facility], [address], [place], [address], 8 06:10:31 iron + total iron-leny ng capacity (TIBC), serum 2017 018 [facility], [address], [place], [address], 8 06:10:30 ferritin, serum or plasma 2017 [facility], [address], [place], [address], 8 06:10:32 CBC w/ auto diff 2017 [facility], [address], [place], [address], 8 06:10:28 Referral gastroente rologist referral - please call patient to schedule. please contact us if unable to accept. thank you 2017 GOTHAMMARSHA Howard MD, [address] [facility] [address], [place], [address], 8 13:30:30 Procedures None recorded. Surgeries None recorded. Imaging DEXA, axial skeleton 2018 019 [facility], [address], [place], [address], 9 11:25:12 Medication Orders tramadol 50 mg tablet 2017 018 [email or web address] [id number] [id number], [address], [place], [address], 0 15:49:01 levothyrox ine 150 mcg tablet 2017 018 [id number], [address], [place], [address], 8 12:07:49 Patient TargetsNo targets recorded. Patient Instructions Encounter Date Encounter Id Patient Instructions Last Modified By Organization Details Last Modified Time 02/06/2018 [id number] hypothyroidism: care instructions [id number] Not available 02/06/2018 12:07:47 iron deficiency anemia: care instructions [id number] Not available 02/06/2018 12:07:47 Reason for Referral [employer] Referral for Iron deficiency anemia iron deficiency anemia please call patient to schedule. please contact us if unable to accept. thank you Referring Physician: Kiki Aguirre, [facility] Medicine, Encounter Date: 02/06/2018 Results Created Date Observation Date Name Description Value Unit Range Abnormal Flag Note LastModifiedBy Organization Detail LastModifiedTime 02/07/20 18 02/07/2018 CBC w/ auto diff WBC 7.6 x10e3 /uL 3.4-10 .8 Not Available [facility] ([facility]) [address] [place], [address], 02/08/2018 06:10:28 02/07/20 18 02/07/2018 CBC w/ auto diff RBC 4.83 x10e6 /uL 3.77-5 .28 Not Available [facility] ([facility]) [address] [place], [address], 02/08/2018 06:10:28 02/07/20 18 02/07/2018 CBC w/ auto diff hemoglobin 13.7 g/dL 11.1-1 5.9 Not Available [facility] ([facility]) [address] [place], [address], 02/08/2018 06:10:28 02/07/20 18 02/07/2018 CBC w/ auto diff hematocrit 40.2 % 34.0-4 6.6 Not Available [facility] ([facility]) [address] [place], [address], 02/08/2018 06:10:28 02/07/20 18 02/07/2018 CBC w/ auto diff MCV 83 fL 79-97 Not Available [facility] ([facility]) [address] [facility], [place], [address], 02/08/2018 06:10:28 02/07/20 18 02/07/2018 CBC w/ auto diff MCH 28.4 pg 26.6-3 3.0 Not Available [facility] ([facility]) [address] [facility], [place], [address], 02/08/2018 06:10:28 02/07/20 18 02/07/2018 CBC w/ auto diff MCHC 34.1 g/dL 31.5-3 5.7 Not Available [facility] ([facility]) [address] [facility], [place], [address], 02/08/2018 06:10:28 02/07/20 18 02/07/2018 CBC w/ auto diff RDW 14.0 % 12.3-1 5.4 Not Available [facility] ([facility]) [address] [facility], [place], [address], 02/08/2018 06:10:28 02/07/20 18 02/07/2018 CBC w/ auto diff platelets 296 x10e3 /uL 150-37 9 Not Available [facility] ([facility]) [address] [facility], [place], [address], 02/08/2018 06:10:28 02/07/20 18 02/07/2018 CBC w/ auto diff neutrophils 56 % not estab. Not Available [facility] ([facility]) [address] [place], [address], 02/08/2018 06:10:28 02/07/20 18 02/07/2018 CBC w/ auto diff lymphs 38 % not estab. Not Available [facility] ([facility]) [address] [facility], [place], [address], 02/08/2018 06:10:28 02/07/20 18 02/07/2018 CBC w/ auto diff monocytes 3 % not estab. Not Available [facility] ([facility]) [address] [place], [address], 02/08/2018 06:10:28 02/07/20 18 02/07/2018 CBC w/ auto diff eos 2 % not estab. Not Available [facility] ([facility]) [address] [place], [address], 02/08/2018 06:10:28 02/07/20 18 02/07/2018 CBC w/ auto diff basos 1 % not estab. Not Available [facility] ([facility]) [address] [place], [address], 02/08/2018 06:10:28 02/07/20 18 02/07/2018 CBC w/ auto diff immature cells LACE BURN OUT TENDER Not Available [facility] ([facility]) [address] [place], [address], 02/08/2018 06:10:28 02/07/20 18 02/07/2018 CBC w/ auto diff neutrophils (absolute) 4.3 x10e3 /uL 1.4-7. 0 Not Available [facility] ([facility]) [address] [place], [address], 02/08/2018 06:10:28 02/07/20 18 02/07/2018 CBC w/ auto diff lymphs (absolute) 2.8 x10e3 /uL 0.7-3. 1 Not Available [facility] ([facility]) [address] [place], [address], 02/08/2018 06:10:28 02/07/20 18 02/07/2018 CBC w/ auto diff monocytes(ab solute) 0.2 x10e3 /uL 0.1-0. 9 Not Available [facility] ([facility]) [address] [place], [address], 02/08/2018 06:10:28 02/07/20 18 02/07/2018 CBC w/ auto diff eos (absolute) 0.1 x10e3 /uL 0.0-0. 4 Not Available [facility] ([facility]) [address] [facility], [place], [address], 02/08/2018 06:10:28 02/07/20 18 02/07/2018 CBC w/ auto diff baso (absolute) 0.0 x10e3 /uL 0.0-0. 2 Not Available [facility] ([facility]) [address] [facility], [place], [address], 02/08/2018 06:10:28 02/07/20 18 02/07/2018 CBC w/ auto diff immature granulocytes 0 % not estab. Not Available [facility] ([facility]) [address] [facility], [place], [address], 02/08/2018 06:10:28 02/07/20 18 02/07/2018 CBC w/ auto diff immature grans (abs) 0.0 x10e3 /uL 0.0-0. 1 Not Available [facility] ([facility]) [address] [facility], [place], [address], 02/08/2018 06:10:28 02/07/20 18 02/07/2018 CBC w/ auto diff NRBC LACE BURN OUT TENDER Not Available [facility] ([facility]) [address] [facility], [place], [address], 02/08/2018 06:10:28 02/07/20 18 02/07/2018 CBC w/ auto diff hematology comments: LACE BURN OUT TENDER Not Available [facility] ([facility]) [address] [place], [address], 02/08/2018 06:10:28 02/07/20 18 02/07/2018 CMP, serum or plasm a glucose 92 mg/dL 65-99 Not Available [facility] ([facility]) [address] [place], [address], 02/08/2018 06:10:29 02/07/20 18 02/07/2018 CMP, serum or plasm a BUN 16 mg/dL 6-24 Not Available [facility] ([facility]) [address] [place], [address], 02/08/2018 06:10:29 02/07/20 18 02/07/2018 CMP, serum or plasm a creatinine 0.74 mg/dL 0.57-1 .00 Not Available [facility] ([facility]) [address] [place], [address], 02/08/2018 06:10:29 02/07/20 18 02/07/2018 CMP, serum or plasm a eGFR if nonafricn AM 89 mL/mi n/1.7 3 >59 Not Available [facility] ([facility]) [address] [facility], [place], [address], 02/08/2018 06:10:29 02/07/20 18 02/07/2018 CMP, serum or plasm a eGFR if africn AM 103 mL/mi n/1.7 3 >59 Not Available [facility] ([facility]) [address] [facility], [place], [address], 02/08/2018 06:10:29 02/07/20 18 02/07/2018 CMP, serum or plasm a BUN/creatini ne ratio 22 9-23 Not Available [facility] ([facility]) [address] [place], [address], 02/08/2018 06:10:29 02/07/20 18 02/07/2018 CMP, serum or plasm a sodium 143 mmol/ L 134-14 4 Not Available [facility] ([facility]) [address] [place], [address], 02/08/2018 06:10:29 02/07/20 18 02/07/2018 CMP, serum or plasm a potassium 4.3 mmol/ L 3.5-5. 2 Not Available [facility] ([facility]) [address] [place], [address], 02/08/2018 06:10:29 02/07/20 18 02/07/2018 CMP, serum or plasm a chloride 103 mmol/ L 96-106 Not Available [facility] ([facility]) [address] [place], [address], 02/08/2018 06:10:29 02/07/20 18 02/07/2018 CMP, serum or plasm a carbon dioxide, total 23 mmol/ L Not Available [facility] ([facility]) [address] [place], [address], 02/08/2018 06:10:29 02/07/20 18 02/07/2018 CMP, serum or plasm a calcium 8.4 mg/dL 8.7-10 .2 below low normal Not Available [facility] ([facility]) [address] [place], [address], 02/08/2018 06:10:29 02/07/20 18 02/07/2018 CMP, serum or plasm a protein, total 6.9 g/dL 6.0-8. 5 Not Available [facility] ([facility]) [address] [place], [address], 02/08/2018 06:10:29 02/07/20 18 02/07/2018 CMP, serum or plasm a albumin 4.3 g/dL 3.5-5. 5 Not Available [facility] ([facility]) [address] [place], [address], 02/08/2018 06:10:29 02/07/20 18 02/07/2018 CMP, serum or plasm a globulin, total 2.6 g/dL 1.5-4. 5 Not Available [facility] ([facility]) [address] [place], [address], 02/08/2018 06:10:29 02/07/20 18 02/07/2018 CMP, serum or plasm a A/G ratio 1.7 1.2-2. 2 Not Available [facility] ([facility]) [address] [place], [address], 02/08/2018 06:10:29 02/07/20 18 02/07/2018 CMP, serum or plasm a bilirubin, total 0.4 mg/dL 0.0-1. 2 Not Available [facility] ([facility]) [address] [place], [address], 02/08/2018 06:10:29 02/07/20 18 02/07/2018 CMP, serum or plasm a alkaline phosphatase 87 IU/L 39-117 Not Available [facility] ([facility]) [address] [facility], [address], 02/08/2018 06:10:29 02/07/20 18 02/07/2018 CMP, serum or plasm a AST (SGOT) 12 IU/L 0-40 Not Available [facility] ([facility]) [address] [place], [address], 02/08/2018 06:10:29 02/07/20 18 02/07/2018 CMP, serum or plasm a ALT (SGPT) 16 IU/L 0-32 Not Available [facility] ([facility]) [address] [place], [address], 02/08/2018 06:10:29 02/07/20 18 02/07/2018 lipid panel , serum cholesterol, total 192 mg/dL 100-19 9 Not Available [facility] ([facility]) [address] [place], [address], 02/08/2018 06:10:29 02/07/20 18 02/07/2018 lipid panel , serum triglyceride s 87 mg/dL 0-149 Not Available [facility] ([facility]) [address] [place], [address], 02/08/2018 06:10:29 02/07/20 18 02/07/2018 lipid panel , serum HDL cholesterol 55 mg/dL >39 Not Available [facility] ([facility]) [address] [place], [address], 02/08/2018 06:10:29 02/07/20 18 02/07/2018 lipid panel , serum VLDL cholesterol denny 17 mg/dL 5-40 Not Available [facility] ([facility]) [address] [place], [address], 02/08/2018 06:10:29 02/07/20 18 02/07/2018 lipid panel , serum LDL cholesterol calc 120 mg/dL 0-99 above high normal Not Available [facility] ([facility]) [address] [place], [address], 02/08/2018 06:10:29 02/07/20 18 02/07/2018 lipid panel , serum comment: LACE BURN OUT TENDER Not Available [facility] ([facility]) [address] [place], [address], 02/08/2018 06:10:29 02/07/20 18 02/07/2018 lipid panel , serum T. chol/HDL ratio 3.5 ratio 0.0-4. 4 T. Chol/ HDL Ratio Men Women 1/2 Avg.R isk 3.4 3.3 Avg.R isk 5.0 4.4 2X Avg.R isk 9.6 7.1 3X Avg.R isk 23.4 11.0 Not Available [facility] ([facility]) [address] [place], [address], 02/08/2018 06:10:29 02/07/20 18 02/07/2018 iron + total iron- leny ng capac ity (TIBC ), serum iron bind.cap.(TI BC) 334 ug/dL 250-45 0 Not Available [facility] ([facility]) [address] [facility], [place], [address], 02/08/2018 06:10:30 02/07/20 18 02/07/2018 iron + total iron- leny ng capac ity (TIBC ), serum UIBC 269 ug/dL 131-42 5 Not Available [facility] ([facility]) [address] [facility], [place], [address], 02/08/2018 06:10:30 02/07/20 18 02/07/2018 iron + total iron- leny ng capac ity (TIBC ), serum iron 65 ug/dL 27-159 Not Available [facility] ([facility]) [address] [facility], [place], [address], 02/08/2018 06:10:30 02/07/20 18 02/07/2018 iron + total iron- leny ng capac ity (TIBC ), serum iron saturation 19 % 15-55 Not Available [facility] ([facility]) [address] [facility], [place], [address], 02/08/2018 06:10:30 02/07/20 18 02/07/2018 vitam in B12 + folat e, serum or blood vitamin B12 293 pg/mL 232-12 45 Not Available [facility] ([facility]) [address] [facility], [place], [address], 02/08/2018 06:10:30 02/07/20 18 02/07/2018 vitam in B12 + folat e, serum or blood folate (folic acid), serum 13.4 NG/mL >3.0 A serum folat e shelbi ntrat ion of less than 3.1 ng/mL is consi dered to repre sent clini denny defic iency . Not Available [facility] ([facility]) [address] [facility], [place], [address], 02/08/2018 06:10:30 02/07/20 18 02/07/2018 vitam in D, 25-hy droxy , total , serum vitamin D, 25-hydroxy 26.9 NG/mL 30.0-1 00.0 below low normal Vitam in D defic iency has been defin ed by the Insti tute of Medic ine and an Endoc rine Socie ty pract ice guide line as a level of serum 25-OH vitam in D less than 20 ng/mL (1,2) . The Endoc rine Socie ty went on to furth er defin e vitam in D insuf ficie ncy as a level betwe en 21 and 29 ng/mL (2). 1. IOM (Inst itute of Medic ine). 2009. Dieta ry refer ence intak es for calci um and D. Gus antunez [place]: The [facility] Press . 2. Chan marin MF, Ana M taylor [place], Denise off-F errar i KIKR, et al. Evalu ation , treat ment, and preve ntion of vitam in D defic iency : an Endoc rine Socie ty clini denny pract ice guide line. JCEM. 2010; 96(7) :1911 -30. Not Available [facility] ([facility]) [address] [place], [address], 02/08/2018 06:10:31 02/07/20 18 02/07/2018 TSH, ultra -sens itive , serum TSH 0.043 uIU/m L 0.450- 4.500 below low normal Not Available [facility] ([facility]) [address] [place], [address], 02/08/2018 06:10:31 02/07/20 18 02/08/2018 TSH, ultra -sens itive , serum thyroxine (T4) 12.5 ug/dL 4.5-12 .0 above high normal Not Available [facility] ([facility]) [address] [place], [address], 02/08/2018 06:10:31 02/07/20 18 02/07/2018 shavon tin, serum or plasm a ferritin, serum 50 NG/mL 15-150 Not Available [facility] ([facility]) [address] [facility], [place], [address], 02/08/2018 06:10:32 02/24/2002/25/2020 CBC w/ auto diff WBC 7.7 x10e3 /uL 3.4-10 .8 Not Available [facility] ([facility]) [address] [facility], [place], [address], 02/25/2020 09:13:21 02/24/2002/25/2020 CBC w/ auto diff RBC 4.70 x10e6 /uL 3.77-5 .28 Not Available [facility] ([facility]) [address] [facility], [place], [address], 02/25/2020 09:13:21 02/24/2002/25/2020 CBC w/ auto diff hemoglobin 13.1 g/dL 11.1-1 5.9 Not Available [facility] ([facility]) [address] [facility], [place], [address], 02/25/2020 09:13:21 02/24/2002/25/2020 CBC w/ auto diff hematocrit 39.6 % 34.0-4 6.6 Not Available [facility] ([facility]) [address] [facility], [place], [address], 02/25/2020 09:13:21 02/24/2002/25/2020 CBC w/ auto diff MCV 84 fL 79-97 Not Available [facility] ([facility]) [address] [place], [address], 02/25/2020 09:13:21 02/24/2002/25/2020 CBC w/ auto diff MCH 27.9 pg 26.6-3 3.0 Not Available [facility] ([facility]) [address] [place], [address], 02/25/2020 09:13:21 02/24/2002/25/2020 CBC w/ auto diff MCHC 33.1 g/dL 31.5-3 5.7 Not Available [facility] ([facility]) [address] [facility], [place], [address], 02/25/2020 09:13:21 02/24/2002/25/2020 CBC w/ auto diff RDW 12.5 % 11.7-1 5.4 Not Available [facility] ([facility]) [address] [facility], [place], [address], 02/25/2020 09:13:21 02/24/2002/25/2020 CBC w/ auto diff platelets 353 x10e3 /uL 150-45 0 Not Available [facility] ([facility]) [address] [facility], [place], [address], 02/25/2020 09:13:21 02/24/2002/25/2020 CBC w/ auto diff neutrophils 59 % not estab. Not Available [facility] ([facility]) [address] [facility], [place], [address], 02/25/2020 09:13:21 02/24/2002/25/2020 CBC w/ auto diff lymphs 34 % not estab. Not Available [facility] ([facility]) [address] [facility], [place], [address], 02/25/2020 09:13:21 02/24/2002/25/2020 CBC w/ auto diff monocytes 5 % not estab. Not Available [facility] ([facility]) [address] [facility], [place], [address], 02/25/2020 09:13:21 02/24/2002/25/2020 CBC w/ auto diff eos 1 % not estab. Not Available [facility] ([facility]) [address] [facility], [place], [address], 02/25/2020 09:13:21 02/24/2002/25/2020 CBC w/ auto diff basos 1 % not estab. Not Available [facility] ([facility]) [address] [facility], [place], [address], 02/25/2020 09:13:21 02/24/2002/25/2020 CBC w/ auto diff immature cells LACE BURN OUT TENDER Not Available [facility] ([facility]) [address] [facility], [place], [address], 02/25/2020 09:13:21 02/24/2002/25/2020 CBC w/ auto diff neutrophils (absolute) 4.6 x10e3 /uL 1.4-7. 0 Not Available [facility] ([facility]) [address] [facility], [place], [address], 02/25/2020 09:13:21 02/24/2002/25/2020 CBC w/ auto diff lymphs (absolute) 2.6 x10e3 /uL 0.7-3. 1 Not Available [facility] ([facility]) [address] [facility], [place], [address], 02/25/2020 09:13:21 02/24/2002/25/2020 CBC w/ auto diff monocytes(ab solute) 0.4 x10e3 /uL 0.1-0. 9 Not Available [facility] ([facility]) [address] [place], [address], 02/25/2020 09:13:21 02/24/2002/25/2020 CBC w/ auto diff eos (absolute) 0.1 x10e3 /uL 0.0-0. 4 Not Available [facility] ([facility]) [address] [place], [address], 02/25/2020 09:13:21 02/24/2002/25/2020 CBC w/ auto diff baso (absolute) 0.1 x10e3 /uL 0.0-0. 2 Not Available [facility] ([facility]) [address] [place], [address], 02/25/2020 09:13:21 02/24/2002/25/2020 CBC w/ auto diff immature granulocytes 0 % not estab. Not Available [facility] ([facility]) [address] [place], [address], 02/25/2020 09:13:21 02/24/2002/25/2020 CBC w/ auto diff immature grans (abs) 0.0 x10e3 /uL 0.0-0. 1 Not Available [facility] ([facility]) [address] [place], [address], 02/25/2020 09:13:21 02/24/2002/25/2020 CBC w/ auto diff NRBC LACE BURN OUT TENDER Not Available [facility] ([facility]) [address] [place], [address], 02/25/2020 09:13:21 02/24/2002/25/2020 CBC w/ auto diff hematology comments: LACE BURN OUT TENDER Not Available [facility] ([facility]) [address] [facility], [place], [address], 02/25/2020 09:13:21 02/24/2002/25/2020 CMP, serum or plasm a glucose 115 mg/dL 65-99 above high normal Not Available [facility] ([facility]) [address] [place], [address], 02/25/2020 09:13:22 02/24/2002/25/2020 CMP, serum or plasm a BUN 14 mg/dL 8-27 Not Available [facility] ([facility]) [address] [place], [address], 02/25/2020 09:13:22 02/24/2002/25/2020 CMP, serum or plasm a creatinine 0.89 mg/dL 0.57-1 .00 Not Available [facility] ([facility]) [address] [place], [address], 02/25/2020 09:13:22 02/24/2002/25/2020 CMP, serum or plasm a eGFR if nonafricn AM 70 mL/mi n/1.7 3 >59 Not Available [facility] ([facility]) [address] [facility], [place], [address], 02/25/2020 09:13:22 02/24/20 20 02/25/2020 CMP, serum or plasm a eGFR if africn AM 81 mL/mi n/1.7 3 >59 Not Available [facility] ([facility]) [address] [place], [address], 02/25/2020 09:13:22 02/24/2002/25/2020 CMP, serum or plasm a BUN/creatini ne ratio 16 12-28 Not Available [facility] ([facility]) [address] [place], [address], 02/25/2020 09:13:22 02/24/2002/25/2020 CMP, serum or plasm a sodium 143 mmol/ L 134-14 4 Not Available [facility] ([facility]) [address] [place], [address], 02/25/2020 09:13:22 02/24/2002/25/2020 CMP, serum or plasm a potassium 4.2 mmol/ L 3.5-5. 2 Not Available [facility] ([facility]) [address] [place], [address], 02/25/2020 09:13:22 02/24/2002/25/2020 CMP, serum or plasm a chloride 102 mmol/ L 96-106 Not Available [facility] ([facility]) [address] [place], [address], 02/25/2020 09:13:22 02/24/2002/25/2020 CMP, serum or plasm a carbon dioxide, total 27 mmol/ L 20-29 Not Available [facility] ([facility]) [address] [place], [address], 02/25/2020 09:13:22 02/24/2002/25/2020 CMP, serum or plasm a calcium 8.9 mg/dL 8.7-10 .3 Not Available [facility] ([facility]) [address] [place], [address], 02/25/2020 09:13:22 02/24/2002/25/2020 CMP, serum or plasm a protein, total 7.1 g/dL 6.0-8. 5 Not Available [facility] ([facility]) [address] [place], [address], 02/25/2020 09:13:22 02/24/2002/25/2020 CMP, serum or plasm a albumin 4.4 g/dL 3.8-4. 8 Not Available [facility] ([facility] [address] [place], [address], 02/25/2020 09:13:22 02/24/2002/25/2020 CMP, serum or plasm a globulin, total 2.7 g/dL 1.5-4. 5 Not Available [facility] ([facility]) [address] [place], [address], 02/25/2020 09:13:22 02/24/2002/25/2020 CMP, serum or plasm a A/G ratio 1.6 1.2-2. 2 Not Available [facility] ([facility] [address] [place], [address], 02/25/2020 09:13:22 02/24/2002/25/2020 CMP, serum or plasm a bilirubin, total 0.4 mg/dL 0.0-1. 2 Not Available [facility] ([facility] [address] [place], [address], 02/25/2020 09:13:22 02/24/2002/25/2020 CMP, serum or plasm a alkaline phosphatase 87 IU/L 39-117 Not Available [facility] [address] [facility], [place], [address], 02/25/2020 09:13:22 02/24/2002/25/2020 CMP, serum or plasm a AST (SGOT) 10 IU/L 0-40 Not Available [facility] ([facility]) [address] [facility], [place], [address], 02/25/2020 09:13:22 02/24/2002/25/2020 CMP, serum or plasm a ALT (SGPT) 9 IU/L 0-32 Not Available [facility] ([facility]) [address] [facility], [place], [address], 02/25/2020 09:13:22 02/24/2002/25/2020 lipid panel , serum cholesterol, total 155 mg/dL 100-19 9 Not Available [facility] ([facility]) [address] [facility], [place], [address], 02/25/2020 09:13:23 02/24/2002/25/2020 lipid panel , serum triglyceride s 91 mg/dL 0-149 Not Available [facility] ([facility]) [address] [place], [address], 02/25/2020 09:13:23 02/24/2002/25/2020 lipid panel , serum HDL cholesterol 44 mg/dL >39 Not Available [facility] ([facility]) [address] [place], [address], 02/25/2020 09:13:23 02/24/2002/25/2020 lipid panel , serum VLDL cholesterol dneny 17 mg/dL 5-40 Not Available [facility] ([facility]) [address] [place], [address], 02/25/2020 09:13:23 02/24/2002/25/2020 lipid panel , serum LDL chol calc ([facility]) 94 mg/dL 0-99 Not Available [facility] ([facility]) [address] [place], [address], 02/25/2020 09:13:23 02/24/2002/25/2020 lipid panel , serum comment: [employer]ER Not Available [facility] ([facility]) [address], [place], [address], 02/25/2020 09:13:23 02/24/2002/25/2020 iron + total iron- leny ng capac ity (TIBC ), serum iron bind.cap.(TI BC) 282 ug/dL 250-45 0 Not Available [facility] ([facility]) [address] [facility], [place], [address], 02/25/2020 09:13:23 02/24/2002/25/2020 iron + total iron- leny ng capac ity (TIBC ), serum UIBC 227 ug/dL 118-36 9 Not Available [facility] ([facility]) [address] [facility], [place], [address], 02/25/2020 09:13:23 02/24/2002/25/2020 iron + total iron- lney ng capac ity (TIBC ), serum iron 55 ug/dL 27-139 Not Available [facility] ([facility]) [address] [facility], [place], [address], 02/25/2020 09:13:23 02/24/2002/25/2020 iron + total iron- leny ng capac ity (TIBC ), serum iron saturation 20 % 15-55 Not Available [facility] ([facility]) [address] [place], [address], 02/25/2020 09:13:23 02/24/2002/25/2020 vitam in B12 + folat e, serum or blood vitamin B12 425 pg/mL 232-12 45 Not Available [facility] ([facility]) [address] [place], [address], 02/25/2020 09:13:24 02/24/2002/25/2020 vitam in B12 + folat e, serum or blood folate (folic acid), serum >20.0 NG/mL >3.0 A serum folat e shelbi ntrat ion of less than 3.1 ng/mL is consi dered to repre sent clini denny defic iency . Not Available [facility] ([facility]) [address] [place], [address], 02/25/2020 09:13:24 02/24/2002/25/2020 TSH, ultra -sens itive , serum TSH 0.013 uIU/m L 0.450- 4.500 below low normal Not Available [facility] ([facility]) [address] [place], [address], 02/25/2020 09:13:25 02/24/2002/25/2020 TSH, ultra -sens itive , serum T4,free (direct) 2.11 NG/dL 0.82-1 .77 above high normal Not Available [facility] ([facility]) [address] [place], [address], 02/25/2020 09:13:25 03/01/2002/20/2019 DEXA, axial skele ton No observ ation record ed. [email or web address] [place] [address] (Imaging) [address], [place], [address], 03/15/2019 17:06:04 Result Notes None recorded. Problems Name Problem SNOMED Code Status Onset Date Resolution Date Notes Provider Name and Address Organization Details Recorded Time Crohn's disease 89170374 Active 018 Kiki Aguirre MD Attn: Accounting ,[address], [place], [address] , [facility] 02/06/2018 12:06:28 Problem Notes None recorded. Procedures Surgical History Date Name Laterality Status Provider Name and Address Organization Details Recorded Time Removal of thyroid completed Jill Burns MA [facility] 02/06/2018 11:37:53 Knee Surgery completed Jill Burns MA [facility] 02/06/2018 11:37:59 Caesarean Section completed Jessica Burns MA [facility] 02/06/2018 11:38:05 Total hysterectomy completed Jill Burns MA [facility] 02/06/2018 11:38:14 Imaging Results Imaging Date Name Status LastModified by Organiz ation Details LastModified Time 02/20/2019 DEXA, axial skeleton completed [address] (Imaging) [address], [place], [address], 03/15/2019 17:06:04 Procedure Notes None recorded. Medical Equipment None Reported. Allergies Allergen ID Allergen Name Allergen Category Reaction Reaction Severity Criticality Documentation Date Start Date Code Code System Note Provider Name and Address Organization Details Recorded Time 941540 codeine medicatio n nausea Not available Not available 02/06/2018 2670 RxNorm Jill Burns MA null, [place] [facility] 8 11:37:12 Medications Name Sig Start Date Stop Date Status Note LastModified by Organization Details LastModified Time levothyroxi ne 137 mcg tablet TAKE 1 TABLET BY MOUTH EVERY DAY 2019 active Not Available Not Available Not Avai lable hydrocodone 5 mg-acetamin ophen 325 mg tablet 07/15 completed Not Available Not Available Not Available meloxicam 15 mg tablet Take 1 tablet every day by oral route. 2019 active Not Available Not Available Not Avai lable tramadol 50 mg tablet Take 1 tablet every 6 hours by oral route. 07/15 completed Not Available Not Available Not Available levothyroxi ne 150 mcg tablet Take 1 tablet every day by oral route. 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 07/15 completed Not Available Not Available Not Available hydroxychlo roquine 200 mg tablet Take 1 tablet(s) every day by oral route. 2019 active Not Available Not Available Not Avai lable Vitals Date Recorded Body height Body mass index (BMI) Body weight Oxygen saturation Oxygen saturation in Arterial blood by Pulse oximetry Heart rate Body temperature Systolic blood pressure Diastolic blood pressure Provider Name and Address Organization Details Last Updated DateTime 8 175.9 cm 30.3 kg/m2 05413.9 g 98 % 98 % 78 /min 98.4 [degF] 110 mm[Hg] 80 mm[Hg] Jill Burns MA [facility] 8 11:50:22 Date Recorded Body height Body mass index (BMI) Body weight Oxygen saturation Oxygen saturation in Arterial blood by Pulse oximetry Heart rate Body temperature Systolic blood pressure Diastolic blood pressure Provider Name and Address Organization Details Last Updated DateTime 9 175.9 cm 29.3 kg/m2 90023.1 7 g 96 % 96 % 66 /min 98 [degF] 118 mm[Hg] 84 mm[Hg] Brook Mckay MA [facility] 9 15:15:51 Social History Question Answer Notes LastModified by Organizat ion Details LastModified Time Tobacco Smoking Status Former Smoker [facility] 02/06/2018 11:38:28 What Is Your Level Of Alcohol Consumption? Occasional 2-4 Times/benito h; 1-2 Drinks Information not available 02/06/2018 What Is Your Level Of Caffeine Consumption? Occasional Information not available 02/06/2018 How Much Tobacco Do You Chew? None Information not available 02/06/2018 Are You Currently Employed? Yes Information not available 02/06/2018 Which Illicit Or Recreational Drugs Have You Used? None Information not available 02/06/2018 Do You Or Have You Ever Used E-cigarettes Or Vape? Never Used Electronic Cigarettes [email or web address] Information not available 02/02/2019 Education 4 Year College Informatio n not available 02/06/2018 Are There Any Guns Present In Your Home? Yes Information not available 02/06/2018 Live Alone Or With Others? With Others Information not available 02/06/2018 What Was The Date Of Your Most Recent Tobacco Screening? 02/06/2018 Information not available 01/03/2019 How Many Children Do You Have? 1 Information not available 02/06/2018 Seat Belts Used Routinely Yes Information not available 02/06/2018 Smoke Alarm In Home Yes Information not available 02/06/2018 Are You Passively Exposed To Smoke? No Information not available 02/06/2018 Do You Or Have You Ever Used Smokeless Tobacco? Never Used Smokeless Tobacco [email or web address] Information not available 02/02/2019 How Much Tobacco Do You Smoke? No [email or web address] Information not available 02/02/2019 Do You Use Sunscreen Routinely? Yes Information not available 02/06/2018 On What Date Was Tobacco Cessation Counseling Provided? 02/01/2019 [email or web address] Information not available 02/02/2019 How Many Years Have You Smoked Tobacco? 5 [email or web address] Information not available 02/02/2019 Sex: Unknown Functional Status None recorded. Mental Status None recorded. Family History Relationship Description Onset Age of this Age Resolved Age Notes LastModified by Organization Details LastModified Time Brother Hypercholest erolemia [email or web address] Not available 02/06 11:39:17 Brother Hypertensive disorder [email or web address] Not available 02/06 11:39:23 Mother Migraine [email or web address] Not availab le 02/06/2018 11:39:31 Mother Family history of malignant neoplasm Stomac h sdevriesma Not available 02/06/2018 11:39:56 Medical History Condition Response Coronary Artery Disease N Other N High Blood Pressure N Atrial Fibrillation N Kidney or Bladder Problems N Thyroid Problems Y GI Problems N Depression N COPD N Blood Clots N Skin Problems N Anemia N Heart Attack (AR) N Anxiety Disorder N Diabetes N Muscle, Joint, or Bone Problems N Seizures/Epilepsy N Acid Reflux (GERD) N Cancer N Stroke N Asthma N Allergies N High Cholesterol N Hepatitis N Liver Disease N Headaches N Heart Failure N Osteoporosis N Gynecological HistoryNo gynecological history recorded. Obstetrics History GPAL:G 0 P 0 0 0 0 Past Encounters Encounter ID Performer Location Encounter Start Date Encounter Closed Date Diagnosis/Indication Diagnosis SNOMED-CT Code Diagnosis ICD10 Code Diagnosis Note [id number] Kiki Aguirre MD [facility] [address] [place] [address] 02/06/2018 11:10:17 02/06/2018 17:49:45 Hypothyroidism 09344955 E03.9 Iron defic iency anemia 72718587 D50.9 Endocrine/ metabolic screening 569865682 Z13.228 Chronic low back pain 27 6640308 M54.5 Standardiz ed adult depression screening tool completed 3619067703 99006 Z13.89 patient is mildly depressed and will be monitored. Body mass index 30+ - obesity 121287666 Z68.39 discussed low fat, low carb diet, and encouraged exercise. [id number] Kiki Aguirre MD [facility] [address] [place] [address] 02/01/2019 14:50:49 02/04/2019 09:42:18 Screening for osteoporosis 402413958 Z13.820 Standardiz ed adult depression screening tool completed 2662065247 38917 Z13.89 patient does not appear to be significan tly depressed. Health Concerns Section Related Observation LastModified by Organization Detai ls LastModified Time None Recorded Concern Status LastModified by Organization Details LastModified Time None Recorded Advance Directives Directive None Recorded Payers Encounter Date Sequence Insurance Name Policy Number Policy Hernandez Covered Member ID Hernandez Member ID Guarantor Name 02/06/2018 1 [facility] [id number] Aleja Azul [id number] Alejajak Azul 02/01/2019 1 [facility] [id number] Alejajak Azul [id number] Aleja Azul Notes Date Note Type Note Provider Name and Address Organization Details Recorded Time 8 text/html AnemiaReported bypatient.Severity:Microcy tic (MCV<80) Duration:constant Timing:worse; gradual Associated Symptoms:shortness of breath;shortness of breath during exertion;weakness;fatigue; general malaise;poor concentration;palpitations ;pallorNotes:will refer to Gi for possible EGD and colonoscopy.Back PainReported bypatient.Location:pain is not radiating; lumbar spine Quality:dull Severity:moderate (5-7) Duration:chronic Onset/Timing:recurrent episode Alleviating Factors:rest Aggravating Factors:movement/positioni ng Associated Symptoms:no fever; no weak limbs; no numbness of the legs/feet; no tingling; no incontinence; no shortness of breathThyroidReported bypatient.Severity:moderat e Onset/Timing:gradual Context:history of hypothyroidism Modifying Factors:medication Exercisegets exercise Associated Symptoms:cold intolerance;constipation;d ecreased appetite;dry skin;fatigue;sleep difficulties;skin changes;hair changes Kiki Aguirre MD Attn: Accounting,[address] [place], [address], [place] [facility] 02/09/2018 00:18:14 OBGyn Episode No OBEpisode recorded.
== END 2024-10-10 13:09 | disposition home or self-care (01) ==
PROVIDERS: PCP Family Medicine; Visit Provider Family Medicine
DX: Z78.0 Asymptomatic menopausal state (principal); M85.89 Other specified disorders of bone density and structure, multiple sites
CPT/HCPCS: 77080

== ENCOUNTER 2025-02-17 13:30 | Outpatient (CLI) | payer MEDICARE, SELFPAY ==
--- NOTE | ~2025-02-17 | XR_ITS ---
EXAM/ PROCEDURE: XR wrist LT min 3V - 02/17/2025 13:30 CDT HISTORY: 64 years old Female with M25.532 - Pain in left wrist COMPARISON: None available TECHNIQUE: Three view(s) FINDINGS/ IMPRESSION: There are no fractures or dislocations.Joint space narrowing, subchondral sclerosis, subchondral cyst formation and osteophyte formation, compatible with mild osteoarthritis. Reviewed, dictated and finalized at location N.
== END 2025-02-17 13:31 | disposition home or self-care (01) ==
LOC: MICIMG 13:31
PROVIDERS: PCP Family Medicine; Visit Provider Physician Assistant Medical
DX: M25.532 Pain in left wrist (principal)
CPT/HCPCS: 73110